=== PATIENT | female | born 1965 | race Caucasian/White ===

== ENCOUNTER 2016-09-15 18:53 | Emergency (ER) | payer MEDICARE, MEDICAID ==
[~2016-09-15 18:53] MED LIST: ALLOPURINOL300 MG PO; AMARYL2 M1 PO; ANORO ELLIPTA1 EAC1 INH; ANTIVERT25 MG PO; ASPIR-LOW81 M1 PO; ASPIRIN EC81 MG PO; ATORVASTATIN CA20 M1 PO; ATORVASTATIN CA20 MG PO; CLINDAMYCIN HC300 MG PO; FLONASE16 G1; GARAMYCIN5 ML OP; GLIPIZIDE ER10 MG PO; GLIPIZIDE5 M1 PO; GLUCOPHAGE1000 MG PO; GLUCOPHAGE500 MG; GLUCOPHAGE500 MG PO; GLUCOTROL XL10 M1 PO; HUMALOG100 UNITS/ SC; HYDROCODON-ACE1 EA16 PO; IBUPROFEN600 MG PO; IBUPROFEN800 MG PO; JANUVIA100 M1 PO; LANTUS100 U/ML SC; LANTUS100 UNITS/ SC; LASIX40 M1 PO; LEVAQUIN500 M1 PO; LEXAPRO10 M2 PO; LIPITOR20 M1 PO; LISINOPRIL10 MG PO; LISINOPRIL20 M1 PO; LISINOPRIL40 MG PO; LYRICA50 MG/CAP PO; LYRICA75 MG/CAP PO; MACROBID100 MG/CAP PO; METFORMIN HCL500 M2 PO; MOTRIN600 MG PO; NORCO 10/3251 TAB PO; NORCO 5-325 TA1 EACH PO; NORCO 5/325 TAB1 TAB PO; NOVOLOG FL100 UNIT/2 SC; OMEPRAZOLE20 M3 PO; OXYBUTYNIN CHLO10 M1 PO; OYSTER SHELL 51 EAC2 PO; PEN-VEE K500 MG PO; PREDNISONE10 M1 PO; PREDNISONE20 M1 PO; PRILOSEC OTC20 M1 PO; PRINIVIL20 M1 PO; RISPERIDONE3 MG PO; STIOLTO RESPIMAT4 GM INH; SYNTHROID50 MC1 PO; TANZEUM50 MG/0.5 SQ; TRAZODONE HCL50 MG PO; TYLENOL #31 TA1 PO; UNKNOWN CHOLESTEROL; VALACYCLOVIR1000 M1 PO; VENTOLIN HFA18 G2 INH; VICTOZA 3-0.6 MG/0.2 SC; VIIBRYD40 MG PO; ZOFRAN4 M2 PO
[2016-09-15 19:50] LABS: BASO % 0.4 % (0-2); EOS % 2.3 % (0-7); EOSINOPHIL ABSOLUTE COUNT 0.1 tho/cmm (0.0-0.7); HCT-HEMATOCRIT 39.6 % (34.0-49.0); HGB-HEMOGLOBIN 13.2 gm/dl (12.0-15.5); IMMATURE GRANULOCYTES ABSOLUTE 0.01 tho/cmm (0-0.03); IMMATURE GRANULOCYTES PERCENT 0.2 % (0-0.3); LYMPH % 13.9 % (20-45); LYMPH ABSOLUTE COUNT 0.7 tho/cmm (0.8-4.5); MCH (MEAN CORPUSCULAR HGB) 28.9 pg (28.0-32.0); MCHC MEAN CORPUSCULAR HGB CONC 33.3 % (32.0-36.0); MCV (MEAN CELL VOLUME) 86.8 fl (82.0-96.0); MEAN PLATELET VOLUME 11.3 cmc (9.4-12.4); MONO % 15.8 % (0-12); MONOCYTE ABSOLUTE COUNT 0.8 tho/cmm (0.0-1.2); NEUTROPHIL ABSOLUTE COUNT 3.3 tho/cmm (1.6-8.0); NEUTROPHIL-AUTOMATED 3.3 tho/cmm (1.6-8.0); NEUTROPHILS % 67.4 % (40-80); PLATELET COUNT 161 tho/cmm (150-450); RED BLOOD COUNT 4.56 mil/cmm (4.00-5.20); RED CELL DISTRIBUTION WIDTH 13.6 % (12.4-16.4); WHITE BLOOD COUNT 4.9 tho/cmm (4.0-10.0)
[2016-09-15 19:54] LABS: PROTHROMBIN TIME 11.1 SECONDS (9.0-13.6)
[2016-09-15 20:07] LABS: ALBUMIN 3.4 g/dl (3.5-5.0); ALKALINE PHOSPHATASE 81 U/L (33-138); BILIRUBIN,TOTAL 0.6 mg/dl (0-1.5); BLOOD UREA NITROGEN 17 mg/dl (6-24); CALCIUM 9.7 mg/dl (8.5-10.5); CARBON DIOXIDE-VENOUS 28 mmol/L (22-32); CHLORIDE 104 mmol/l (96-110); CREATININE 1.84 mg/dl (0.50-1.10); GLUCOSE 299 mg/dL (70-110); SODIUM 142 mmol/L (135-145); eGFR VALUE FOR BLACK 36 mL/Min
[2016-09-15 20:12] LABS: ALT/SGPT 41 U/L (12-78); ANION GAP 14 mmol/L (0-20); AST/SGOT 48 U/L (10-40); POTASSIUM 3.7 mmol/L (3.7-5.1)
[2017-01-15] MEDS ORDERED: PRINIVIL20 M1 PO (19:51)
[2017-01-15] MEDS ORDERED: VALTREX500 M1 PO (19:53)
[2017-01-15] MEDS ORDERED: ZYLOPRIM100 M1 PO (19:57)
[2017-01-15] MEDS ORDERED: TOPROL XL25 M1 PO (19:58)
[2017-01-16] MEDS ORDERED: TOPROL XL50 M1 PO (16:08)
== END 2016-09-15 22:29 ==
LOC: EDMED 18:53
PROVIDERS: Family Medicine
DX: D86.9 Sarcoidosis, unspecified (principal); E11.22 Type 2 diabetes mellitus with diabetic chronic kidney disease; I12.9 Hypertensive chronic kidney disease with stage 1 through stage 4 chronic kidney disease, or unspecified chronic kidney disease; N18.9 Chronic kidney disease, unspecified; E03.9 Hypothyroidism, unspecified; K21.9 Gastro-esophageal reflux disease without esophagitis; Z98.890 Other specified postprocedural states; Z79.51 Long term (current) use of inhaled steroids; Z79.4 Long term (current) use of insulin; Z79.82 Long term (current) use of aspirin; Z79.890 Hormone replacement therapy; Z79.899 Other long term (current) drug therapy; Z90.710 Acquired absence of both cervix and uterus; Z90.89 Acquired absence of other organs

== ENCOUNTER 2016-12-08 19:59 | Emergency (ER) | payer MEDICARE, MEDICAID ==
[2016-12-08 21:01] LABS: BASO % 0.4 % (0-2); EOS % 1.1 % (0-7); EOSINOPHIL ABSOLUTE COUNT 0.1 tho/cmm (0.0-0.7); HCT-HEMATOCRIT 43.5 % (34.0-49.0); HGB-HEMOGLOBIN 14.5 gm/dl (12.0-15.5); IMMATURE GRANULOCYTES ABSOLUTE 0.02 tho/cmm (0-0.03); IMMATURE GRANULOCYTES PERCENT 0.4 % (0-0.3); LYMPH % 17.6 % (20-45); LYMPH ABSOLUTE COUNT 0.8 tho/cmm (0.8-4.5); MCH (MEAN CORPUSCULAR HGB) 28.3 pg (28.0-32.0); MCHC MEAN CORPUSCULAR HGB CONC 33.3 % (32.0-36.0); MCV (MEAN CELL VOLUME) 84.8 fl (82.0-96.0); MEAN PLATELET VOLUME 10.3 cmc (9.4-12.4); MONO % 15.8 % (0-12); MONOCYTE ABSOLUTE COUNT 0.7 tho/cmm (0.0-1.2); NEUTROPHILS % 64.7 % (40-80); PLATELET COUNT 174 tho/cmm (150-450); RED BLOOD COUNT 5.13 mil/cmm (4.00-5.20); RED CELL DISTRIBUTION WIDTH 14.6 % (12.4-16.4); WHITE BLOOD COUNT 4.6 tho/cmm (4.0-10.0)
[2016-12-08 21:17] LABS: ALB/GLOB RATIO 0.8 (0.8-2.0); ALBUMIN 3.3 g/dl (3.5-5.0); ALKALINE PHOSPHATASE 97 U/L (33-138); ALT/SGPT 72 U/L (12-78); BILIRUBIN,TOTAL 0.8 mg/dl (0-1.5); BLOOD UREA NITROGEN 16 mg/dl (6-24); CALCIUM 8.8 mg/dl (8.5-10.5); CARBON DIOXIDE-VENOUS 27 mmol/L (22-32); CHLORIDE 105 mmol/l (96-110); CREATININE 1.87 mg/dl (0.50-1.10); GLUCOSE 204 mg/dL (70-110); LIPASE 181 U/L (73-393); SODIUM 143 mmol/L (135-145); eGFR VALUE FOR BLACK 35 mL/Min
[2016-12-08 21:30] LABS: ANION GAP 15 mmol/L (0-20); AST/SGOT 57 U/L (10-40); POTASSIUM 4.4 mmol/L (3.7-5.1)
[2016-12-08 21:30] LABS: URINE BILIRUBIN NEGATIVE (NEG); URINE BLOOD NEGATIVE (NEG); URINE GLUCOSE (UA) MODERATE (NEG); URINE KETONE NEGATIVE (NEG); URINE LEUKOCYTE ESTERASE NEGATIVE (NEG); URINE NITRITE NEGATIVE (NEG); URINE PROTEIN SMALL (NEG); URINE SPECIFIC GRAVITY 1.015 (1.003-1.030)
[2016-12-08 21:37] LABS: URINE APPEARANCE CLEAR; URINE COLOR YELLOW
[2016-12-08 21:44] LABS: URINE RBC 0-1 /[HPF] (0-5)
[2017-01-15] MEDS ORDERED: PRINIVIL20 M1 PO (19:51)
[2017-01-15] MEDS ORDERED: VALTREX500 M1 PO (19:53)
[2017-01-15] MEDS ORDERED: ZYLOPRIM100 M1 PO (19:57)
[2017-01-15] MEDS ORDERED: TOPROL XL25 M1 PO (19:58)
[2017-01-16] MEDS ORDERED: TOPROL XL50 M1 PO (16:08)
== END 2016-12-08 22:50 ==
LOC: EDMED 19:59
PROVIDERS: Emergency Medicine
DX: R59.1 Generalized enlarged lymph nodes (principal); N28.9 Disorder of kidney and ureter, unspecified; E11.9 Type 2 diabetes mellitus without complications; I10 Essential (primary) hypertension; E78.5 Hyperlipidemia, unspecified; F31.9 Bipolar disorder, unspecified; Z90.710 Acquired absence of both cervix and uterus; Z90.49 Acquired absence of other specified parts of digestive tract; Z98.890 Other specified postprocedural states; Z79.82 Long term (current) use of aspirin; Z79.4 Long term (current) use of insulin; Z79.899 Other long term (current) drug therapy
CPT/HCPCS: J1170; J2405; J7030